=== PATIENT | female | born 1955 | race Caucasian/White ===

== ENCOUNTER → 2023-06-15 10:50 | Outpatient (REF) | payer BC, SELFPAY | LOC: WDC 10:50 | PROVIDERS: ATTENDING PHYSICIAN Obstetrics & Gynecology Gynecology | DX: Z12.31 Encounter for screening mammogram for malignant neoplasm of breast (principal) | CPT/HCPCS: 77063; 77067 ==

== ENCOUNTER → 2023-10-09 07:15 | Outpatient (REF) | payer BC, SELFPAY | LOC: MRI 3T 07:15 | PROVIDERS: ATTENDING PHYSICIAN Otolaryngology; FAMILY PHYSICIAN Internal Medicine | DX: H90.3 Sensorineural hearing loss, bilateral (principal) | CPT/HCPCS: 70553; A9575 ==

== ENCOUNTER 2024-02-05 21:32 | Emergency (ER) | payer MEDICARE, BC, SELFPAY ==
[2024-02-05 21:41] VITALS: BP 127/87
[2024-02-05 22:23] LABS: % Basophils 0.3 % (0-2); % Eosinophils 0.3 % (0-6); % Immature Granulocytes 0.3 % (0-0.5); % Lymphocytes 8.3 % (20.5-51.1); % Monocytes 3.4 % (1.7-9.3); % Neutrophils 87.4 % (42.2-75.2); Absolute Lymphocytes 0.8 10^3/uL (1.2-3.4); Absolute Monocytes 0.3 10^3/uL (0.1-0.6); Absolute Neutrophils 8.6 10^3/uL (1.4-6.5); Hematocrit 41.6 % (37.0-47.0); Hemoglobin 13.8 g/dL (12.0-16.0); Mean Corp Hgb Conc. 33.2 g/dL (33.0-37.0); Mean Corpuscular Hgb 29.4 pg (27.0-31.0); Mean Corpuscular Volume 88.7 fL (81.0-99.0); Mean Platelet Volume 8.5 fL (7.4-10.4); Nucleated Red Blood Cells % 0 %; Platelet Count 218 10^3/uL (130-400); Red Blood Cell Count 4.69 10^6/uL (4.20-5.40); Red Cell Dist. Width 11.9 % (11.5-14.5); White Blood Cell Count 9.9 10^3/uL (4.8-10.8)
[2024-02-05 22:44] LABS: ALT (SGPT) 22 U/L (0-35); AST (SGOT) 30 U/L (14-36); Albumin 4.2 g/dl (3.5-5.0); Alkaline Phosphatase 76 U/L (38-126); Blood Urea Nitrogen 18 mg/dl (7-17); Calcium 9.2 mg/dl (8.4-10.2); Carbon Dioxide 28 mmol/L (22-30); Chloride 101 mmol/L (98-107); Glucose 150 mg/dl (70-99); Lipase 78 U/L (23-300); Potassium 3.8 mmol/L (3.5-5.1); Sodium 139 mmol/L (135-145); Total Bilirubin 0.5 mg/dl (0.2-1.3); Total Protein 6.6 g/dl (6.3-8.2); eGFR > 60.00
--- NOTE | 2024-02-05 23:41 | ED.GENMED ---
History of Present Illness
General
Chief Complaint: Abdominal Pain
Source: patient
Exam Limitations: none
Time Seen by Provider: 02/05/24 23:28
History of Present Illness
History of Present Illness:
This is a 69 year old female that comes in with c/o not being able to poop or urinate. States that the last time she remembers urinating was around 5:30pm. States that she has been vomiting since then and has not been able to poop. States that she
has been taking care of her mother and doesn't remember when the last time was that she had a normal stool. States that she is nauseated and vomiting. Denies any fever, c hills, chest pain, SOB, dairrhea, headache, dizziness, urinary burning.
Past History
Past History
ED Past Medical History: Other (Migraine, )
ED Past Surgical History: Gynecological (ovarian cyst removal), Tonsilectomy and Other (Left breast lumpectomy, Gum surgery, )
Social History
Tobacco: Non-smoker
Alcohol: None
Drug: None
Personal:
Living: alone
Review of Systems
Review of Systems
All Other Systems: ROS reviewed and negative except as documented in HPI and ROS
Constitutional: Reports no symptoms; Denies fever or chills
EENT: Reports no symptoms
Respiratory: Reports no symptoms; Denies cough or trouble breathing
Cardiac: Reports no symptoms; Denies chest pain
ABD/GI: Reports abdominal pain, nausea, vomiting and constipated; Denies diarrhea
: Reports difficulty voiding; Denies dysuria
Musculoskeletal: Reports no symptoms
Skin: Reports no symptoms
Neurological: Reports no symptoms; Denies dizzy or headache
Psychiatric: Reports no symptoms
Phy Exam
General Physical Exam
General Presentation: mild distress
General age: appears stated age
General Skin: warm and dry
General Habitus: elderly
General Mental: alert
General Hydration: dry mucous membranes
ENT Exam
ENT Exam: TM's normal, pharynx normal and neck supple
Eye Exam
Eye Exam: EOMI
Cardiovascular Exam
Cardiovascular Exam: regular rate/rhythm, no edema, no murmur and normal peripheral pulses
Pulmonary Exam
Pulmonary Exam: lungs clear, no respiratory distress, no rales, chest non tender, no crackles, no rhonchi, no wheezing and no cough
Gastrointestinal Exam
Gastrointestinal Exam: soft, no organomegaly, no pulsatile mass, non distended, tender (Slight lower abd tenderness with palpation) and other (Hypoactive bowel sounds, No stool found in the rectal vault)
Musculoskeletal Exam
Musculoskeletal Exam: full ROM and no edema
Skin Exam
Skin Exam: normal color, warm/dry, no rash and no petechia
Psychiatric Exam
Psychiatric Exam: normal mood/affect
Course
Orders/Labs/Results
Orders:
Orders
02/05/24 22:16
Complete Blood Count/With Diff Urgent
Comprehensive Metabolic Panel Urgent
Lipase Urgent
02/05/24 23:40
Bladder Scan- Treatment ONCE
Nursing to Place Non Medication Order As Directed
Physician Order: Please weight patient and get height
Above order entered?: Yes
02/05/24 23:41
0.9% Sodium Chloride 1000 ml [Nss] 1,000 ml IV BOLUS
02/05/24 23:42
Urinalysis Reflex To Culture Urgent
Date Specimen was Collected: 02/06/24
Time Specimen was Collected: 01:38
02/05/24 23:46
Ondansetron Injectable [Zofran] 4 mg IV NOW STA
02/06/24 00:08
CT Abd/pelvis W Iv Cont Urgent
Comment:
Reason For Exam: abd pain
02/06/24 01:49
Urine Microscopic Reflex Cult Urgent
Abnormal Lab Results
02/05/24 02/06/24
22:16 01:49
Absolute Neuts (auto) 8.6 H 10^3/uL
(1.4-6.5)
Absolute Lymphs (auto) 0.8 L 10^3/uL
(1.2-3.4)
Neutrophils % 87.4 H %
(42.2-75.2)
Lymphocytes % 8.3 L %
(20.5-51.1)
BUN 18 H mg/dl
(7-17)
Glucose 150 H mg/dl
(70-99)
Urine Ketones 3+ A
(Negative)
Urine Bilirubin 1+ A
(Negative)
Leukocyte Esterase Rfl Trace A
(Negative)
Urine Bacteria (Reflex) Few A
(Negative)
02/05/24 22:16
02/05/24 22:16
Slight Dehydration. Hyperglycemia. Urine negative for infection. Lipase normal
Vital Signs
Initial and Last Documented VS:
Initial Vital Signs
Temp Pulse Resp BP Pulse Ox
97.5 F 60 18 127/87 98
02/05/24 21:41 02/05/24 21:41 02/05/24 21:41 02/05/24 21:41 02/05/24 21:41
Last Documented Vital Signs
Temp Pulse Resp BP Pulse Ox
98.7 F 72 16 137/66 99
02/06/24 01:55 02/06/24 01:55 02/06/24 01:55 02/06/24 01:55 02/06/24 01:55
MDM/Problems Addressed
Differential Diagnosis Includes:
Urinary retention. UTI, Constipation. Bowel obstrucation
MDM/Problems Addressed:
This is a 69 year old female that comes in with c/o not being able to urinate or have a BM. States that she has not urinated since 5:30pm tonight and that she doesn't remember when her last BM.
Will check labs, Bladder scan. CT abd and given IV fluids and Zofran for her nausea and vomiting.
Back into see patient. Explained that her blood work is normal but the Ct shows that she has colitis. Will start patient on antibiotics. Patient to increase her water intake and follow up with the family doctor for recheck. Patient to return with
fever, increased or changing pain, or any other concerns.
Chronic conditions affecting care:
NA
Acute Exacerbation and/or Progression of Chronic Illness:
NA
*Radiology
Radiology exam reviewed: radiology read reviewed (CT [place]- moderate wall thickening of the transverse colon suspicious for Colitis. This may be infectious or inflammatory. No obstruction. Normal appendix. NO free air. Mild periportal edema. No
CT signs of Cholecystitis or pancreatitis. No obstructive uropathy. No concerning bone findings. . )
*Pulse Oximetry
Patient hypoxic: no
*EKG
Interpreted by ED Provider?: NA
Rate: EKG- N/A
*Bundle Collector Interpretation
Rate: Bundle Collector- N/A
*Critical Care Note
Total Time (30-74mins, 75-104mins- exclusive of procedures): Not Applicable
ED Attending Note
-
Portions of this chart may have been created with voice recognition software.� Occasional wrong word or��sound alike� substitutions may have occurred due to the inherent limitations of voice recognition software.
Discharge Plan
Departure
Patient Disposition: Home (Routine Discharge)
Date of Disposition: 02/06/24
Time of Disposition: 03:23
Patient with high blood pressure during this ER visit?: Yes
Condition: Good
Covid-19: Not Applicable
Discharge Problem:
Colitis
Instructions: Colitis (DC), BLOOD PRESSURE
Prescriptions:
New
metronidazole 500 mg tablet
500 mg PO TID Qty: 21 0RF
levofloxacin 500 mg tablet
500 mg PO DAILY 7 Days Qty: 7 0RF
No Action
rizatriptan [Maxalt] 10 mg Tablet
10 mg PO PRN PRN (Reason: MIGRAINES)
Referrals:
Bruce Smith MD [Family Provider] - Follow up in 10 days
Activity Restrictions/Additional Instructions:
As discussed, your blood work shows very slight Dehydration. Please increase your water intake to 8-8oz glasses daily. Your CT shows that you have colitis. You have been given your first dose of antibiotic there and 2 prescriptions have been sent to
your pharmacy. The Levaquin is daily and the Flagyl is three times a day. Your urine was negative for infection. Follow up with the family doctor for recheck. IF YOU HAVE INCREASED OR CHANGING PAIN, OR YOU HAVE ANY OTHER CONCERNS PLEASE RETURN TO
THE EMERGENCY ROOM.
Interventions
Interventions:
*Risk Screen - Suicide Last Done: 02/05/24 21:41
*General Assessment Last Done: 02/05/24 21:41
*Neglect/Abuse Screening Last Done: 02/05/24 21:41
ED- Fall Risk Assessment Last Done: 02/06/24 01:45
*ED COVID-19 Vaccine History Last Done: 02/05/24 21:41
ED-Uhgymj-Zxmrmmgoed Assessment Last Done: 02/06/24 01:45
Discharge Date and Time
Print Language: GHANAIAN
[2024-02-06] MEDS: ZOFRAN 4 MG IV (01:50)
[2024-02-06] MEDS: NSS 1000 IV (01:50)
[2024-02-06 01:52] VITALS: BMI 24.5
[2024-02-06 01:55] VITALS: BP 137/66
[2024-02-06 02:14] LABS: Urine Albumin Trace (Neg - Trace); Urine Bilirubin 1+ (Negative); Urine Character Clear (Clear); Urine Color Yellow; Urine Glucose Negative (Negative); Urine Ketone 3+ (Negative); Urine Leukocyte Trace (Negative); Urine Nitrite Negative (Negative); Urine Occult Blood Negative (Negative); Urine Urobilinogen 1+ (Neg - 1+)
[2024-02-06 02:24] LABS: Urine Calcium Oxalate Crystals Seen; Urine Mucus Many
[2024-02-06 02:25] LABS: Urine Red Blood Cell 0-2 /HPF (0-2)
[2024-02-06 02:26] LABS: Urine Bacteria Few (Negative)
[2024-02-06] MEDS: LEVAQUIN 500 MG PO (03:33)
[2024-02-06] MEDS: FLAGYL 500 MG PO (03:33)
[2024-02-06 05:50] VITALS: BP 128/70
== END 2024-02-06 06:00 | disposition home or self-care (01) ==
LOC: EMR 21:32
PROVIDERS: Clinical Nurse Specialist Family Health; Emergency Medicine; EMERGENCY PHYSICIAN Student in an Organized Health Care Education/Training Program; FAMILY PHYSICIAN Internal Medicine
DX: K52.9 Noninfective gastroenteritis and colitis, unspecified (principal); E86.0 Dehydration
CPT/HCPCS: 96374; 96361; 99284; 74177; 80053; 81003; 81015; 83690; 85025; Q9967

== ENCOUNTER → 2024-07-12 11:56 | Outpatient (REF) | payer MEDICARE, BC, SELFPAY | LOC: WDC 11:56 | PROVIDERS: ATTENDING PHYSICIAN Obstetrics & Gynecology Gynecology; FAMILY PHYSICIAN Internal Medicine | DX: Z12.31 Encounter for screening mammogram for malignant neoplasm of breast (principal) | CPT/HCPCS: 77063; 77067 ==